=== PATIENT | female | born 1970 | race Caucasian/White ===

== ENCOUNTER → 2019-01-18 | Outpatient (CLI) | payer OTHER ==
--- NOTE | ~2019-01-18 | EKG ---
[place], [place] ELECTROCARDIOGRAM REPORT NAME: JORGE ALBERTO ALCARAZ UNIT #: [id number] ROOM: DOCTOR: EPIPHANY DRAFT REPORT BIRTHDATE: [birth year] [facility] Test Date: 2019-01-18 Test Time: 10:13:14 Pat Name: JORGE ALBERTO ALCARAZ Department: Room: Gender: F [employer]: : 1970 Requested By: CADY MILLIGAN Order Number: [id number] Reading MD: Measurements Intervals [place] Rate: 78 P: 7 LA: 131 QRS: 73 QRSD: 86 T: 34 QT: 384 QTc: 438 Interpretive Statements Sinus rhythm No previous ECG available for comparison CM:EKGRPT:ELECTROCARDIOGRAM REPORT [id number] CADY SCHWARZANY DRAFT REPORT CADY MILLIGAN
== END | disposition home or self-care (01) ==
LOC: CARD 09:45
DX: N93.8 Other specified abnormal uterine and vaginal bleeding (principal); R00.2 Palpitations; D64.9 Anemia, unspecified; Z85.44 Personal history of malignant neoplasm of other female genital organs

== ENCOUNTER → 2019-03-13 | Outpatient (CLI) | payer OTHER | END | disposition home or self-care (01) | LOC: MAMMO 10:35 | DX: Z12.31 Encounter for screening mammogram for malignant neoplasm of breast (principal) ==

== ENCOUNTER → 2019-03-15 | Outpatient (CLI) | payer OTHER | END | disposition home or self-care (01) | LOC: CARD 03-06 09:00 | DX: R00.2 Palpitations (principal); D64.9 Anemia, unspecified; N93.8 Other specified abnormal uterine and vaginal bleeding; Z82.49 Family history of ischemic heart disease and other diseases of the circulatory system ==

== ENCOUNTER → 2019-03-29 | Outpatient (CLI) | payer OTHER | END | disposition home or self-care (01) | LOC: US 03-13 10:00 | DX: N93.9 Abnormal uterine and vaginal bleeding, unspecified (principal) ==